=== PATIENT | male | born 1985 | race African-American/Black ===

== ENCOUNTER 2020-07-10 01:06 | Emergency (ER) | payer MEDICAID ==
[~2020-07-10] VITALS: Ht 177.8 cm; Wt 84.0 kg
[2020-07-10] MEDS ORDERED: BACITRACIN ZINC OINT UDPKT TOP ONE (01:45)
[2020-07-10] MEDS ORDERED: LIDOCAINE 1%/EPI 1:100,000 10 ML VIAL IJ ONE (01:45)
[2020-07-10] MEDS ORDERED: KETOROLAC 60MG/2ML VIAL IM ONE (01:45)
[2020-07-10] MEDS ORDERED: TETANUS, DIPHTHERIA, PERTUSSIS VAC/PF 0.5ML (>7YR OLD) IM ONE (01:45)
[2020-07-10 03:37] VITALS: BP 130/85
== END 2020-07-10 05:12 | disposition home or self-care (01) ==
LOC: ER 01:19
DX: F15.10 Other stimulant abuse, uncomplicated (principal); S01.91XA Laceration without foreign body of unspecified part of head, initial encounter; X58.XXXA Exposure to other specified factors, initial encounter; Y93.89 Activity, other specified; Y92.89 Other specified places as the place of occurrence of the external cause; Y99.8 Other external cause status
CPT/HCPCS: 12002; 90471; 90715; 96372; 99284; J1885; Z7610; J3490